=== PATIENT | male | born 1985 | race Caucasian/White ===

== ENCOUNTER 2019-01-11 20:50 | Emergency (ER) | payer BC ==
[2019-01-11] MEDS ORDERED: Sodium Chloride 0.9% 1,000 ML IV ONE (21:08)
--- NOTE | 2019-01-11 21:08 | EDM.PDOC ---
ED HPI GENERAL MEDICAL PROBLEM - General Chief Complaint: Flank Pain Stated Complaint: LT SIDE HURTS Time Seen by Provider: 01/11/19 20:57 - History of Present Illness INITIAL COMMENTS - FREE TEXT/NARRATIVE: HISTORY AND PHYSICAL: History of present illness: Patient 33-year-old white male was recently treated for urinary tract infection presents with a concern of left flank pain and difficulty urinating he's had no fever chills nausea vomiting or other complaints denies discomfort with urination or urethral discharge denies penile lesions Review of systems: As per history of present illness and below otherwise all systems reviewed and negative. Past medical history: As per history of present illness and as reviewed below otherwise noncontributory. Surgical history: As per history of present illness and as reviewed below otherwise noncontributory. Social history: No reported history of drug or alcohol abuse. Family history: As per history of present illness and as reviewed below otherwise noncontributory. Physical exam: HEENT: Atraumatic, normocephalic, pupils reactive, negative for conjunctival pallor or scleral icterus, mucous membranes moist, throat clear, neck supple, nontender, trachea midline. Lungs: Clear to auscultation, breath sounds equal bilaterally, chest nontender. Heart: S1S2, regular, negative for clicks, rubs, or JVD. Abdomen: Soft, nondistended, nontender. Negative for masses or hepatosplenomegaly. Negative for costovertebral tenderness. Pelvis: Stable nontender. Genitourinary: Deferred. Rectal: Deferred. Extremities: Atraumatic, negative for cords or calf pain. Neurovascular unremarkable. Neuro: Awake, alert, oriented. Cranial nerves II through XII unremarkable. Cerebellum unremarkable. Motor and sensory unremarkable throughout. Exam nonfocal. Diagnostics: CBC CMP UA BladderScan CT abdomen and pelvis Therapeutics: Saline 1 L bolus Impression: #1 left flank pain #2 history of urinary retention Definitive disposition and diagnosis as appropriate pending reevaluation and review of above. left flank Pain Score (Numeric/FACES): 3 - Related Data Allergies Allergy/AdvReac Type Severity Reaction Status Date / Time No Known Allergies Allergy Verified 01/11/19 20:58 Home Meds: Home Meds . [No Known Home Meds] 01/11/19 [History] Past Medical History - Past Health History Medical/Surgical History: Denies Medical/Surgical History Social & Family History - Family History Family Medical History: Noncontributory - Tobacco Use Smoking Status *Q: Never Smoker - Recreational Drug Use Recreational Drug Use: No ED ROS GENERAL - Review of Systems Review Of Systems: ROS reveals no pertinent complaints other than HPI. ED EXAM, GENERAL - Physical Exam Exam: See Below (Dictation) Course - Vital Signs Text/Narrative:: Multiple times a Mosqueda catheter placement was unsuccessful repeat bladder scan demonstrates 650 mL of urine urology is unavailable currently I discussed with patient transferred to [facility] for definitive evaluation and treatment Last Recorded V/S: Last Vital Signs Temp 35.9 C 01/11/19 20:50 Pulse 92 01/11/19 20:50 Resp 18 01/11/19 20:50 BP 141/84 H 01/11/19 20:50 Pulse Ox 95 01/11/19 20:50 - Orders/Labs/Meds Orders: Active Orders 24 hr Category Date Time Status Bladder Scan [RC] ASDIRECTED Care 01/11/19 20:59 Active Insert Mosqueda Catheter [Insert Urinary Catheter] [OM.PC] Care 01/11/19 22:00 Ordered Q24H Urinary Catheter Assessment [RC] ASDIRECTED Care 01/11/19 21:55 Active Labs: Laboratory Tests 01/11/19 01/11/19 01/11/19 Range/Units 21:05 21:20 21:20 WBC 6.22 (4.0-11.0) K/uL RBC 5.12 (4.50-5.90) M/uL Hgb 15.5 (13.0-17.0) g/dL Hct 44.5 (38.0-50.0) % MCV 86.9 (80.0-98.0) fL MCH 30.3 (27.0-32.0) pg MCHC 34.8 (31.0-37.0) g/dL RDW Std Deviation 42.7 (28.0-62.0) fl RDW Coeff of Maryann 13 (11.0-15.0) % Plt Count 193 (150-400) K/uL MPV 9.60 (7.40-12.00) fL Neut % (Auto) 69.2 (48.0-80.0) % Lymph % (Auto) 18.2 (16.0-40.0) % [place] % (Auto) 12.1 (0.0-15.0) % Eos % (Auto) 0.3 (0.0-7.0) % Baso % (Auto) 0.2 (0.0-1.5) % Neut # (Auto) 4.3 (1.4-5.7) K/uL Lymph # (Auto) 1.1 (0.6-2.4) K/uL [place] # (Auto) 0.8 (0.0-0.8) K/uL Eos # (Auto) 0.0 (0.0-0.7) K/uL Baso # (Auto) 0.0 (0.0-0.1) K/uL Nucleated RBC % 0.0 /100WBC Nucleated RBCs # 0 K/uL Sodium 137 (136-148) mmol/L Potassium 4.9 (3.5-5.1) mmol/L Chloride 103 (98-107) mmol/L Carbon Dioxide 21.9 (21.0-32.0) mmol/L BUN 15 (7.0-18.0) mg/dL Creatinine 1.2 (0.8-1.3) mg/dL Est Cr Clr Drug Dosing 85.50 mL/min Estimated GFR (MDRD) > 60.0 ml/min Glucose 111 H (74-106) mg/dL Calcium 8.8 (8.5-10.1) mg/dL Total Bilirubin 0.8 (0.2-1.0) mg/dL AST 55 H (15-37) IU/L ALT 56 (14-63) IU/L Alkaline Phosphatase 77 (46-116) U/L Total Protein 7.9 (6.4-8.2) g/dL Albumin 3.6 (3.4-5.0) g/dL Globulin 4.3 H (2.6-4.0) g/dL Albumin/Globulin Ratio 0.8 L (0.9-1.6) Urine Color YELLOW Urine Appearance CLEAR Urine pH 6.0 (5.0-8.0) Ur Specific [place] 1.010 (1.001-1.035) Urine Protein NEGATIVE (NEGATIVE) mg/dL Urine Glucose (UA) NEGATIVE (NEGATIVE) mg/dL Urine Ketones NEGATIVE (NEGATIVE) mg/dL Urine Occult Blood SMALL H (NEGATIVE) Urine Nitrite NEGATIVE (NEGATIVE) Urine Bilirubin NEGATIVE (NEGATIVE) Urine Urobilinogen 0.2 (<2.0) EU/dL Ur Leukocyte Esterase NEGATIVE (NEGATIVE) Urine RBC 1-2 (0-2/HPF) Urine WBC 0-1 (0-5/HPF) Ur Epithelial Cells RARE (NONE-FEW) Urine Bacteria RARE (NEGATIVE) Meds: Medications Discontinued Medications Generic Name Dose Route Start Last Admin Trade Name Freq PRN Reason Stop Dose Admin Sodium Chloride 1,000 mls @ 999 mls/hr 01/11/19 21:08 01/11/19 21:26 Normal Saline IV 01/11/19 22:08 999 mls/hr .Bolus ONE Administration Departure - Departure Time of Disposition: 22:32 Disposition: DC/Tfer to Acute Hospital 02 Condition: Good Clinical Impression: Acute urinary retention - Discharge Information Referrals: PCP,None [Primary Care Provider] - Forms: ED Department Discharge - My Orders Last 24 Hours: My Active Orders 01/11/19 20:59 Bladder Scan [RC] ASDIRECTED 01/11/19 21:55 Urinary Catheter Assessment [RC] ASDIRECTED 01/11/19 22:00 Insert Mosqueda Catheter [Insert Urinary Catheter] [OM.PC] Q24H - Assessment/Plan Last 24 Hours: My Active Orders 01/11/19 20:59 Bladder Scan [RC] ASDIRECTED 01/11/19 21:55 Urinary Catheter Assessment [RC] ASDIRECTED 01/11/19 22:00 Insert Mosqueda Catheter [Insert Urinary Catheter] [OM.PC] Q24H
[2019-01-11 21:52] LABS: BLOOD UREA NITROGEN,BUN 15 mg/dL (7.0-18.0); CARBON DIOXIDE,CO2 21.9 mmol/L (21.0-32.0); CHLORIDE,CL 103 mmol/L (98-107); GLUCOSE RANDOM 111 mg/dL (74-106); POTASSIUM,K 4.9 mmol/L (3.5-5.1); SODIUM,NA 137 mmol/L (136-148)
--- NOTE | 2019-01-11 22:08 | CT ---
INDICATION: Left flank pain, painful urination x 1.[address] ABDOMEN AND PELVIS WITHOUT CONTRAST TECHNIQUE: Multidetector CT imaging was performed through the abdomen and pelvis without intravenous contrast administration. Coronal and sagittal reconstructions were generated. COMPARISON: None. FINDINGS: Lower chest: Lung bases are clear. Liver: Diffuse fatty infiltration. Gallbladder and bile ducts: No gallbladder wall thickening or calcified gallstones. No biliary dilation identified. Pancreas: Unremarkable. Spleen: Normal. Adrenals: No nodules or masses. Kidneys, ureters, and urinary bladder: No urinary tract stones identified. No hydronephrosis. Question of mild diffuse wall thickening of the urinary bladder. Gastrointestinal tract: Normal caliber bowel without wall thickening. The appendix is normal. Vascular structures: Normal for age. Peritoneum: No free air, abscess, or significant free fluid. Lymph nodes: No pathologically enlarged nodes identified. Reproductive organs: No pelvic masses. Bones: Normal for age. IMPRESSION: 1. With question of mild wall thickening of the urinary bladder. Correlation with urinalysis is recommended to exclude cystitis. 2. Fatty infiltration of the liver. ADAN BREAUX MD [employer] [facility] [employer] Dictated by Torsten Breaux MD @ 01/11/2019 10:06:56 PM Dictated by: Torsten Breaux MD @ 01/11/2019 22:07:27 (Electronically Signed)
== END 2019-01-11 23:30 ==
LOC: MW.ED 20:50
DX: R33.9 Retention of urine, unspecified (principal); R10.9 Unspecified abdominal pain
CPT/HCPCS: 36415; 51798; 74176; 80053; 81001; 85025; 96360; 99285; J7040; 99284

== ENCOUNTER 2019-01-13 21:08 | Inpatient (IN) | payer BC ==
[2019-01-13] MEDS ORDERED: Sodium Chloride 0.9% 1,000 ML IV ONE ×2 (21:20→22:46)
[2019-01-13] MEDS ORDERED: Ibuprofen 800 MG Tab PO ONE (21:31)
--- NOTE | 2019-01-13 21:31 | EDM.PDOC ---
ED HPI GENERAL MEDICAL PROBLEM - General Chief Complaint: Fever Stated Complaint: HIGH FEVER AND CHILLS Time Seen by Provider: 01/13/19 21:29 Source of Information: Reports: Patient History Limitations: Reports: No Limitations - History of Present Illness INITIAL COMMENTS - FREE TEXT/NARRATIVE: HISTORY AND PHYSICAL: History of present illness: Patient is a 33-year-old male who presents to the emergency room today with complaints of fever and chills. Patient was seen in our emergency room on for urinary retention. During that visit they were unable to get a Post catheter after multiple attempts and was transferred to [facility] in [place]. The patient states he received a suprapubic catheter as they were unable to get a Post catheter in either. He was seen by a urologist at [facility]. Patient and were dissatisfied with finding the cause of his urinary retention and did go directly to [facility] in [place]. They had further lab workup and CT of the abdomen and pelvis which they state were benign with the exception of inflammation of the bladder. He was placed on Pyridium and Bactrim. Started these medications yesterday. He states he has felt well and has had no complaints up until 2 hours prior to arrival. 2 hours prior he developed fever of 103.9 and chills. They contacted [facility] in [place] and they recommend he come in for evaluation if fever continued. The patient took Tylenol prior to arrival. Patient denies any headache, change in vision, syncope or near syncope. Denies any chest pain, back pain, shortness of breath or cough. Denies any abdominal pain, nausea, vomiting, diarrhea, constipation or dysuria. Denies any testicular/rectal pain, swelling or erythema. Continues to make urine routinely in the post. No leaking or decrease in urinary output. Urine is orange/pink in color (but likely due to Pyridium - and has been this color since suprapubic catheter placement). Patient has been eating and drinking appropriately. Review of systems: As per history of present illness and below otherwise all systems reviewed and negative. Past medical history: As per history of present illness and as reviewed below otherwise noncontributory. Surgical history: As per history of present illness and as reviewed below otherwise noncontributory. Social history: See social history for further information Family history: As per history of present illness and as reviewed below otherwise noncontributory. Physical exam: General: Well-developed and well-nourished 33-year-old male. Alert and oriented. Nontoxic appearing and in no acute distress. HEENT: Atraumatic, normocephalic, pupils equal and reactive bilaterally, negative for conjunctival pallor or scleral icterus, mucous membranes moist, TMs normal bilaterally, throat clear, neck supple, nontender, trachea midline. No drooling or trismus noted. No meningeal signs. No hot potato voice noted. Lungs: Clear to auscultation, breath sounds equal bilaterally, chest nontender. Heart: S1S2, regular rate and rhythm without overt murmur Abdomen: Soft, nondistended, obese, nontender. Negative for masses or hepatosplenomegaly. Negative for costovertebral tenderness. Pelvis: Suprapubic catheter noted. See skin for details. Stable nontender. Genitourinary: WNL Skin: Suprapubic catheter is noted without any erythema. The surrounding skin is nonfluctuant/indurated and without any drainage or tenderness. Intact, warm, dry. No lesions or rashes noted. Extremities: Atraumatic, moves all extremities per self without difficulty or deficits. Neurovascular unremarkable. Neuro: Awake, alert, oriented. Cranial nerves II through XII unremarkable. Cerebellum unremarkable. Motor and sensory unremarkable throughout. Exam nonfocal. Notes: Currently patient's lactate is elevated, he is tachycardic but is not hypotensive. Patient continues to be pain free and states other than the chills he has no other complaints or concerns. Dr Pettit, urologist was consulted on this case. He states that this patient can be admitted to general medical and he will see the patient in the morning. Dr. Goodwin was consulted on this case. We 'll admit for observation and continue to monitor his blood pressure. R/o urosepsis Diagnostics: CBC, CMP, BC x 2, Lactic Acid, UA Therapeutics: Zosyn Impression: UTI Presence of suprapubic catheter Plan: Admission to Med/Surg Definitive disposition and diagnosis as appropriate pending reevaluation and review of above. site of suprapubic catheter Pain Score (Numeric/FACES): 5 - Related Data Allergies Allergy/AdvReac Type Severity Reaction Status Date / Time No Known Allergies Allergy Verified 01/13/19 21:21 Home Meds: Home Meds Phenazopyridine [Pyridium] 200 mg PO TID 01/13/19 [History] Sulfamethoxazole/Trimethoprim [Bactrim Ds Tablet] 1 tab PO BID 01/13/19 [History ] Past Medical History - Past Health History Medical/Surgical History: Denies Medical/Surgical History Genitourinary History: Reports: Other (See Below) Other Genitourinary History: with suprapubic catheter on, pt was here with complaints of inability to urinate and ED staff was unsuccessful in inserting indwelling cath ([place]rapubic cath [place] 01/12) - Infectious Disease History Infectious Disease History: Reports: Chicken Pox - Past Surgical History Male Surgical History: Reports: None Social & Family History - Family History Family Medical History: Noncontributory - Tobacco Use Smoking Status *Q: Never Smoker Second Hand Smoke Exposure: No - Caffeine Use Caffeine Use: Reports: Coffee - Recreational Drug Use Recreational Drug Use: No ED ROS GENERAL - Review of Systems Review Of Systems: ROS reveals no pertinent complaints other than HPI. ED EXAM, GENERAL - Physical Exam Exam: See Below (See dictation) Course - Vital Signs Last Recorded V/S: Last Vital Signs Temp 102.2 F H 01/13/19 22:32 Pulse 116 H 01/13/19 22:32 Resp 22 H 01/13/19 22:32 BP 126/59 L 01/13/19 22:32 Pulse Ox 95 01/13/19 22:32 - Orders/Labs/Meds Orders: Active Orders 24 hr Category Date Time Status Patient Status [ADT] Stat ADT 01/13/19 22:47 Ordered CULTURE BLOOD [BC] Stat Lab 01/13/19 21:21 Received CULTURE BLOOD [BC] Stat Lab 01/13/19 21:55 Received CULTURE URINE [RM] Stat Lab 01/13/19 21:50 Received Piperacillin/Tazobactam [Piperacil-Tazobact] 4.5 gm Med 01/13/19 22:46 Ordered Sodium Chloride 0.9% [Normal Saline] 100 ml IV ONETIME Sodium Chloride 0.9% [Normal Saline] 1,000 ml Med 01/13/19 22:46 Ordered IV STAT Blood Culture x2 Reflex Set [OM.PC] Stat Oth 01/13/19 21:19 Ordered Medication Orders Piperacillin Sod/Tazobactam (Sod 4.5 gm/ Sodium Chloride) 100 mls @ 100 mls/hr IV ONETIME ONE Stop: 01/13/19 23:45 Sodium Chloride (Normal Saline) 1,000 mls @ 999 mls/hr IV STAT ONE Stop: 01/13/19 23:46 Labs: Laboratory Tests 01/13/19 01/13/19 01/13/19 Range/Units 21:50 21:55 21:55 WBC 4.69 (4.0-11.0) K/uL RBC 4.86 (4.50-5.90) M/uL Hgb 14.5 (13.0-17.0) g/dL Hct 43.4 (38.0-50.0) % MCV 89.3 (80.0-98.0) fL MCH 29.8 (27.0-32.0) pg MCHC 33.4 (31.0-37.0) g/dL RDW Std Deviation 43.9 (28.0-62.0) fl RDW Coeff of Maryann 13 (11.0-15.0) % Plt Count 148 L (150-400) K/uL MPV 9.40 (7.40-12.00) fL Neut % (Auto) 91.0 H (48.0-80.0) % Lymph % (Auto) 6.8 L (16.0-40.0) % [place] % (Auto) 1.1 (0.0-15.0) % Eos % (Auto) 1.1 (0.0-7.0) % Baso % (Auto) 0.0 (0.0-1.5) % Neut # (Auto) 4.3 (1.4-5.7) K/uL Lymph # (Auto) 0.3 L (0.6-2.4) K/uL [place] # (Auto) 0.1 (0.0-0.8) K/uL Eos # (Auto) 0.1 (0.0-0.7) K/uL Baso # (Auto) 0.0 (0.0-0.1) K/uL Nucleated RBC % 0.0 /100WBC Nucleated RBCs # 0 K/uL Lactate 2.5 H (0.20-2.00) mmol/L Sodium (136-148) mmol/L Potassium (3.5-5.1) mmol/L Chloride (98-107) mmol/L Carbon Dioxide (21.0-32.0) mmol/L BUN (7.0-18.0) mg/dL Creatinine (0.8-1.3) mg/dL Est Cr Clr Drug Dosing mL/min Estimated GFR (MDRD) ml/min Glucose (74-106) mg/dL Calcium (8.5-10.1) mg/dL Total Bilirubin (0.2-1.0) mg/dL AST (15-37) IU/L ALT (14-63) IU/L Alkaline Phosphatase (46-116) U/L Total Protein (6.4-8.2) g/dL Albumin (3.4-5.0) g/dL Globulin (2.6-4.0) g/dL Albumin/Globulin Ratio (0.9-1.6) Urine Color ORANGE Urine Appearance CLOUDY Urine pH 6.5 (5.0-8.0) Ur Specific [place] 1.025 (1.001-1.035) Urine Protein >=300 H (NEGATIVE) mg/dL Urine Glucose (UA) >=1000 (NEGATIVE) mg/dL Urine Ketones 15 H (NEGATIVE) mg/dL Urine Occult Blood LARGE H (NEGATIVE) Urine Nitrite POSITIVE H (NEGATIVE) Urine Bilirubin NEGATIVE (NEGATIVE) Urine Urobilinogen >=8.0 H (<2.0) EU/dL Ur Leukocyte Esterase SMALL H (NEGATIVE) Urine RBC 50-60 (0-2/HPF) Urine WBC 2-3 (0-5/HPF) Ur Epithelial Cells RARE (NONE-FEW) Urine Bacteria 2+ H (NEGATIVE) 01/13/19 Range/Units 21:55 WBC (4.0-11.0) K/uL RBC (4.50-5.90) M/uL Hgb (13.0-17.0) g/dL Hct (38.0-50.0) % MCV (80.0-98.0) fL MCH (27.0-32.0) pg MCHC (31.0-37.0) g/dL RDW Std Deviation (28.0-62.0) fl RDW Coeff of Maryann (11.0-15.0) % Plt Count (150-400) K/uL MPV (7.40-12.00) fL Neut % (Auto) (48.0-80.0) % Lymph % (Auto) (16.0-40.0) % [place] % (Auto) (0.0-15.0) % Eos % (Auto) (0.0-7.0) % Baso % (Auto) (0.0-1.5) % Neut # (Auto) (1.4-5.7) K/uL Lymph # (Auto) (0.6-2.4) K/uL [place] # (Auto) (0.0-0.8) K/uL Eos # (Auto) (0.0-0.7) K/uL Baso # (Auto) (0.0-0.1) K/uL Nucleated RBC % /100WBC Nucleated RBCs # K/uL Lactate (0.20-2.00) mmol/L Sodium 139 (136-148) mmol/L Potassium 3.7 (3.5-5.1) mmol/L Chloride 104 (98-107) mmol/L Carbon Dioxide 24.0 (21.0-32.0) mmol/L BUN 15 (7.0-18.0) mg/dL Creatinine 1.4 H (0.8-1.3) mg/dL Est Cr Clr Drug Dosing 75.75 mL/min Estimated GFR (MDRD) 58.7 ml/min Glucose 131 H (74-106) mg/dL Calcium 8.2 L (8.5-10.1) mg/dL Total Bilirubin 0.7 (0.2-1.0) mg/dL AST 35 (15-37) IU/L ALT 45 (14-63) IU/L Alkaline Phosphatase 70 (46-116) U/L Total Protein 6.8 (6.4-8.2) g/dL Albumin 3.3 L (3.4-5.0) g/dL Globulin 3.5 (2.6-4.0) g/dL Albumin/Globulin Ratio 0.9 (0.9-1.6) Urine Color Urine Appearance Urine pH (5.0-8.0) Ur Specific [place] (1.001-1.035) Urine Protein (NEGATIVE) mg/dL Urine Glucose (UA) (NEGATIVE) mg/dL Urine Ketones (NEGATIVE) mg/dL Urine Occult Blood (NEGATIVE) Urine Nitrite (NEGATIVE) Urine Bilirubin (NEGATIVE) Urine Urobilinogen (<2.0) EU/dL Ur Leukocyte Esterase (NEGATIVE) Urine RBC (0-2/HPF) Urine WBC (0-5/HPF) Ur Epithelial Cells (NONE-FEW) Urine Bacteria (NEGATIVE) Meds: Medications Generic Name Dose Route Start Last Admin Trade Name Freq PRN Reason Stop Dose Admin Piperacillin Sod/Tazobactam 100 mls @ 100 mls/hr 01/13/19 22:46 Sod 4.5 gm/ Sodium Chloride IV 01/13/19 23:45 ONETIME ONE Sodium Chloride 1,000 mls @ 999 mls/hr 01/13/19 22:46 Normal Saline IV 01/13/19 23:46 STAT ONE Discontinued Medications Generic Name Dose Route Start Last Admin Trade Name Freq PRN Reason Stop Dose Admin Sodium Chloride 1,000 mls @ 999 mls/hr 01/13/19 21:20 01/13/19 21:35 Normal Saline IV 01/13/19 22:20 999 mls/hr STAT ONE Administration Ibuprofen 800 mg 01/13/19 21:31 01/13/19 21:44 Motrin PO 01/13/19 21:32 800 mg ONETIME ONE Administration Departure - Departure Time of Disposition: 22:54 Disposition: Refer to Observation Clinical Impression: Presence of suprapubic catheter UTI (urinary tract infection) Qualifiers: Urinary tract infection type: site unspecified Hematuria presence: with hematuria Qualified Code(s): N39.0 - Urinary tract infection, site not specified ; R31.9 - Hematuria, unspecified - Discharge Information Referrals: PCP,None [Primary Care Provider] - Forms: ED Department Discharge - My Orders Last 24 Hours: My Active Orders 01/13/19 21:19 Blood Culture x2 Reflex Set [OM.PC] Stat 01/13/19 21:21 CULTURE BLOOD [BC] Stat 01/13/19 21:50 CULTURE URINE [RM] Stat 01/13/19 21:55 CULTURE BLOOD [BC] Stat 01/13/19 22:46 Piperacillin/Tazobactam [Piperacil-Tazobact] 4.5 gm Sodium Chloride 0.9% [ Normal Saline] 100 ml IV ONETIME Sodium Chloride 0.9% [Normal Saline] 1,000 ml IV STAT 01/13/19 22:47 Patient Status [ADT] Stat - Assessment/Plan Last 24 Hours: My Active Orders 01/13/19 21:19 Blood Culture x2 Reflex Set [OM.PC] Stat 01/13/19 21:21 CULTURE BLOOD [BC] Stat 01/13/19 21:50 CULTURE URINE [RM] Stat 01/13/19 21:55 CULTURE BLOOD [BC] Stat 01/13/19 22:46 Piperacillin/Tazobactam [Piperacil-Tazobact] 4.5 gm Sodium Chloride 0.9% [ Normal Saline] 100 ml IV ONETIME Sodium Chloride 0.9% [Normal Saline] 1,000 ml IV STAT 01/13/19 22:47 Patient Status [ADT] Stat
[2019-01-13 22:36] LABS: POTASSIUM,K 3.7 mmol/L (3.5-5.1)
[2019-01-13] MEDS ORDERED: Piperacillin/Tazobactam 4.5 GM in Sodium Chloride 0.9% 100 ML IV ONE (22:46)
--- NOTE | 2019-01-14 00:49 | PCM.HP.2 ---
H&P History of Present Illness - General Date of Service: 01/14/19 Admit Problem/Dx: Admission Diagnosis/Problem Admission Diagnosis/Problem UTI, Urinary tract infectious disease - History of Present Illness Initial Comments - Free Text/Narative: 33 yo male with pmh of UTI for which he was initially treated with Bactrim then developed urinary retention and was transferred to [place] where he had a suprapubic catheter placed. They attempted cystocopy but were unable to pass scope. He then went to [place] for another opinion regarding the reason for his obstruction but was told he need to wait to allow the inflammation of the bladder to improve before attempting any further studies. He has been at home doing well until today he developed fevers and chills. He denies any suprapubic pain or discharge/erythema around catheter site. site of suprapubic catheter Pain Score (Numeric/FACES): 5 - Related Data Allergies/Adverse Reactions: Allergies Allergy/AdvReac Type Severity Reaction Status Date / Time No Known Allergies Allergy Verified 01/14/19 02:07 Home Medications: Home Meds Phenazopyridine [Pyridium] 200 mg PO TID 01/13/19 [History] Sulfamethoxazole/Trimethoprim [Bactrim Ds Tablet] 1 tab PO BID 01/13/19 [History ] Past Medical History - Past Health History Medical/Surgical History: Denies Medical/Surgical History Genitourinary History: Reports: Other (See Below) Other Genitourinary History: with suprapubic catheter on, pt was here with complaints of inability to urinate and ED staff was unsuccessful in inserting ind[facility]elling cath [facility] - Infectious Disease History Infectious Disease History: Reports: Chicken Pox - Past Surgical History Male Surgical History: Reports: None Social & Family History - Family History Family Medical History: Noncontributory - Tobacco Use Smoking Status *Q: Never Smoker Second Hand Smoke Exposure: No - Caffeine Use Caffeine Use: Reports: Coffee, Soda - Recreational Drug Use Recreational Drug Use: No H&P Review of Systems - Review of Systems: Review Of Systems: ROS reveals no pertinent complaints other than HPI. Exam - Exam Exam: See Below - Vital Signs Vital Signs: Last Vital Signs Temp 37.6 C 01/14/19 00:00 Pulse 105 H 01/14/19 00:00 Resp 18 01/14/19 00:00 BP 107/51 L 01/14/19 00:00 Pulse Ox 94 L 01/14/19 00:00 Weight: 136.713 kg - Exam General: Alert, Oriented HEENT: Mucosa Moist & [place] Lungs: Clear to Auscultation, Normal Respiratory Effort Cardiovascular: Regular Rate, Regular Rhythm GI/Abdominal Exam: Soft, Non-Tender Extremities: Non-Tender, No Pedal Edema Skin: Warm, Dry, Intact - Patient Data Lab Results Last 24 hrs: Laboratory Results - last 24 hr 01/13/19 01/13/19 01/13/19 Range/Units 21:50 21:55 21:55 WBC 4.69 (4.0-11.0) K/uL RBC 4.86 (4.50-5.90) M/uL Hgb 14.5 (13.0-17.0) g/dL Hct 43.4 (38.0-50.0) % MCV 89.3 (80.0-98.0) fL MCH 29.8 (27.0-32.0) pg MCHC 33.4 (31.0-37.0) g/dL RDW Std Deviation 43.9 (28.0-62.0) fl RDW Coeff of Maryann 13 (11.0-15.0) % Plt Count 148 L (150-400) K/uL MPV 9.40 (7.40-12.00) fL Neut % (Auto) 91.0 H (48.0-80.0) % Lymph % (Auto) 6.8 L (16.0-40.0) % [place] % (Auto) 1.1 (0.0-15.0) % Eos % (Auto) 1.1 (0.0-7.0) % Baso % (Auto) 0.0 (0.0-1.5) % Neut # (Auto) 4.3 (1.4-5.7) K/uL Lymph # (Auto) 0.3 L (0.6-2.4) K/uL [place] # (Auto) 0.1 (0.0-0.8) K/uL Eos # (Auto) 0.1 (0.0-0.7) K/uL Baso # (Auto) 0.0 (0.0-0.1) K/uL Nucleated RBC % 0.0 /100WBC Nucleated RBCs # 0 K/uL Lactate 2.5 H (0.20-2.00) mmol/L Sodium (136-148) mmol/L Potassium (3.5-5.1) mmol/L Chloride (98-107) mmol/L Carbon Dioxide (21.0-32.0) mmol/L BUN (7.0-18.0) mg/dL Creatinine (0.8-1.3) mg/dL Est Cr Clr Drug Dosing mL/min Estimated GFR (MDRD) ml/min Glucose (74-106) mg/dL Calcium (8.5-10.1) mg/dL Total Bilirubin (0.2-1.0) mg/dL AST (15-37) IU/L ALT (14-63) IU/L Alkaline Phosphatase (46-116) U/L Total Protein (6.4-8.2) g/dL Albumin (3.4-5.0) g/dL Globulin (2.6-4.0) g/dL Albumin/Globulin Ratio (0.9-1.6) Urine Color ORANGE Urine Appearance CLOUDY Urine pH 6.5 (5.0-8.0) Ur Specific [place] 1.025 (1.001-1.035) Urine Protein >=300 H (NEGATIVE) mg/dL Urine Glucose (UA) >=1000 (NEGATIVE) mg/dL Urine Ketones 15 H (NEGATIVE) mg/dL Urine Occult Blood LARGE H (NEGATIVE) Urine Nitrite POSITIVE H (NEGATIVE) Urine Bilirubin NEGATIVE (NEGATIVE) Urine Urobilinogen >=8.0 H (<2.0) EU/dL Ur Leukocyte Esterase SMALL H (NEGATIVE) Urine RBC 50-60 (0-2/HPF) Urine WBC 2-3 (0-5/HPF) Ur Epithelial Cells RARE (NONE-FEW) Urine Bacteria 2+ H (NEGATIVE) 01/13/19 Range/Units 21:55 WBC (4.0-11.0) K/uL RBC (4.50-5.90) M/uL Hgb (13.0-17.0) g/dL Hct (38.0-50.0) % MCV (80.0-98.0) fL MCH (27.0-32.0) pg MCHC (31.0-37.0) g/dL RDW Std Deviation (28.0-62.0) fl RDW Coeff of Maryann (11.0-15.0) % Plt Count (150-400) K/uL MPV (7.40-12.00) fL Neut % (Auto) (48.0-80.0) % Lymph % (Auto) (16.0-40.0) % [place] % (Auto) (0.0-15.0) % Eos % (Auto) (0.0-7.0) % Baso % (Auto) (0.0-1.5) % Neut # (Auto) (1.4-5.7) K/uL Lymph # (Auto) (0.6-2.4) K/uL [place] # (Auto) (0.0-0.8) K/uL Eos # (Auto) (0.0-0.7) K/uL Baso # (Auto) (0.0-0.1) K/uL Nucleated RBC % /100WBC Nucleated RBCs # K/uL Lactate (0.20-2.00) mmol/L Sodium 139 (136-148) mmol/L Potassium 3.7 (3.5-5.1) mmol/L Chloride 104 (98-107) mmol/L Carbon Dioxide 24.0 (21.0-32.0) mmol/L BUN 15 (7.0-18.0) mg/dL Creatinine 1.4 H (0.8-1.3) mg/dL Est Cr Clr Drug Dosing 75.75 mL/min Estimated GFR (MDRD) 58.7 ml/min Glucose 131 H (74-106) mg/dL Calcium 8.2 L (8.5-10.1) mg/dL Total Bilirubin 0.7 (0.2-1.0) mg/dL AST 35 (15-37) IU/L ALT 45 (14-63) IU/L Alkaline Phosphatase 70 (46-116) U/L Total Protein 6.8 (6.4-8.2) g/dL Albumin 3.3 L (3.4-5.0) g/dL Globulin 3.5 (2.6-4.0) g/dL Albumin/Globulin Ratio 0.9 (0.9-1.6) Urine Color Urine Appearance Urine pH (5.0-8.0) Ur Specific [place] (1.001-1.035) Urine Protein (NEGATIVE) mg/dL Urine Glucose (UA) (NEGATIVE) mg/dL Urine Ketones (NEGATIVE) mg/dL Urine Occult Blood (NEGATIVE) Urine Nitrite (NEGATIVE) Urine Bilirubin (NEGATIVE) Urine Urobilinogen (<2.0) EU/dL Ur Leukocyte Esterase (NEGATIVE) Urine RBC (0-2/HPF) Urine WBC (0-5/HPF) Ur Epithelial Cells (NONE-FEW) Urine Bacteria (NEGATIVE) Result Diagrams: 01/15/19 05:12 01/15/19 05:12 Problem List Initiated/Reviewed/Updated: Yes Orders Last 24hrs: Active Orders 24 hr Category Date Time Status Patient Status [ADT] Routine ADT 01/14/19 00:41 Ordered Antiembolic Devices [RC] PER UNIT ROUTINE Care 01/14/19 00:42 Ordered Oxygen Therapy [RC] PRN Care 01/14/19 00:41 Ordered Up ad Tanja [RC] ASDIRECTED Care 01/14/19 00:41 Ordered VTE/DVT Education [RC] PER UNIT ROUTINE Care 01/14/19 00:41 Ordered Vital Signs [RC] Q4H Care 01/14/19 00:41 Ordered Regular Diet [DIET] Diet 01/14/19 Breakfast Ordered BASIC METABOLIC PANEL,BMP [CHEM] AM Lab 01/14/19 05:11 Ordered BASIC METABOLIC PANEL,BMP [CHEM] AM Lab 01/15/19 05:11 Ordered CBC W/O DIFF,HEMOGRAM [HEME] AM Lab 01/14/19 05:11 Ordered CBC W/O DIFF,HEMOGRAM [HEME] AM Lab 01/15/19 05:11 Ordered CULTURE BLOOD [BC] Stat Lab 01/13/19 21:21 Received CULTURE BLOOD [BC] Stat Lab 01/13/19 21:55 Received CULTURE URINE [RM] Stat Lab 01/13/19 21:50 Received LACTIC ACID,WHOLE BLOOD [BG] Q6H Lab 01/14/19 03:00 Ordered LACTIC ACID,WHOLE BLOOD [BG] Q6H Lab 01/14/19 09:00 Ordered LACTIC ACID,WHOLE BLOOD [BG] Q6H Lab 01/14/19 15:00 Ordered LACTIC ACID,WHOLE BLOOD [BG] Q6H Lab 01/14/19 21:00 Ordered Acetaminophen [Tylenol] Med 01/14/19 00:41 Ordered 650 mg PO Q4H PRN Phenazopyridine [Pyridium] Med 01/14/19 06:00 Ordered 200 mg PO TID Piperacillin/Tazobactam [Piperacil-Tazobact] 3.375 gm Med 01/14/19 04:00 Ordered Sodium Chloride 0.9% [Normal Saline] 50 ml IV Q6H Blood Culture x2 Reflex Set [OM.PC] Stat Oth 01/13/19 21:19 Ordered Obtain Past Medical Record [OM.PC] Routine Oth 01/14/19 00:43 Ordered Sequential Compression Device [OM.PC] Per Unit Routine Oth 01/14/19 00:42 Ordered Resuscitation Status Routine Resus Stat 01/14/19 00:41 Ordered Medication Orders Acetaminophen (Tylenol) 650 mg PO Q4H PRN PRN Reason: Pain (Mild 1-3)/fever Piperacillin Sod/Tazobactam (Sod 3.375 gm/ Sodium Chloride) 50 mls @ 100 mls/ hr IV Q6H [facility] Phenazopyridine HCl (Pyridium) 200 mg PO TID [facility] Assessment/Plan Comment:: 33 yo male admitted for sepsis from UTI. We will treat with IV fluids, Zosyn and trend lactic acid. Urine and blood cultures are pending. Dr. Pettit was consulted in the ED.
[2019-01-14] MEDS: Sodium Chloride 0.9% 1,000 ML IV SCH ×4 (01:16→22:11)
[2019-01-14] MEDS: Piperacillin/Tazobactam 3.375 GM in Sodium Chloride 0.9% 50 ML IV SCH ×4 (04:47→22:12)
[2019-01-14] MEDS: Phenazopyridine 200 MG Tab PO SCH ×3 (04:59→22:12)
[2019-01-14 06:49] LABS: CARBON DIOXIDE,CO2 23.6 mmol/L (21.0-32.0); POTASSIUM,K 3.4 mmol/L (3.5-5.1)
[2019-01-14] MEDS ORDERED: Potassium Chloride 20 MEQ Tab.ER PO ONE (09:24)
--- NOTE | 2019-01-14 10:55 | PCM.PN ---
- General Info Date of Service: 01/14/19 - Review of Systems Systems Review Comment:: feeling better, no fevers - Patient Data Vitals - Most Recent: Last Vital Signs Temp 37.4 C 01/14/19 07:36 Pulse 97 01/14/19 07:36 Resp 18 01/14/19 07:36 BP 120/58 L 01/14/19 07:36 Pulse Ox 94 L 01/14/19 07:36 Weight - Most Recent: 136.713 kg I&O - Last 24 Hours: Intake & Output 01/13/19 01/14/19 01/14/19 22:59 06:59 14:59 Intake Total 300 Output Total 450 Balance -150 Lab Results Last 24 Hours: Laboratory Results - last 24 hr 01/13/19 01/13/19 01/13/19 Range/Units 21:50 21:55 21:55 WBC 4.69 (4.0-11.0) K/uL RBC 4.86 (4.50-5.90) M/uL Hgb 14.5 (13.0-17.0) g/dL Hct 43.4 (38.0-50.0) % MCV 89.3 (80.0-98.0) fL MCH 29.8 (27.0-32.0) pg MCHC 33.4 (31.0-37.0) g/dL RDW Std Deviation 43.9 (28.0-62.0) fl RDW Coeff of Maryann 13 (11.0-15.0) % Plt Count 148 L (150-400) K/uL MPV 9.40 (7.40-12.00) fL Neut % (Auto) 91.0 H (48.0-80.0) % Lymph % (Auto) 6.8 L (16.0-40.0) % [place] % (Auto) 1.1 (0.0-15.0) % Eos % (Auto) 1.1 (0.0-7.0) % Baso % (Auto) 0.0 (0.0-1.5) % Neut # (Auto) 4.3 (1.4-5.7) K/uL Lymph # (Auto) 0.3 L (0.6-2.4) K/uL [place] # (Auto) 0.1 (0.0-0.8) K/uL Eos # (Auto) 0.1 (0.0-0.7) K/uL Baso # (Auto) 0.0 (0.0-0.1) K/uL Nucleated RBC % 0.0 /100WBC Nucleated RBCs # 0 K/uL Lactate 2.5 H (0.20-2.00) mmol/L Sodium (136-148) mmol/L Potassium (3.5-5.1) mmol/L Chloride (98-107) mmol/L Carbon Dioxide (21.0-32.0) mmol/L BUN (7.0-18.0) mg/dL Creatinine (0.8-1.3) mg/dL Est Cr Clr Drug Dosing mL/min Estimated GFR (MDRD) ml/min Glucose (74-106) mg/dL Calcium (8.5-10.1) mg/dL Total Bilirubin (0.2-1.0) mg/dL AST (15-37) IU/L ALT (14-63) IU/L Alkaline Phosphatase (46-116) U/L Total Protein (6.4-8.2) g/dL Albumin (3.4-5.0) g/dL Globulin (2.6-4.0) g/dL Albumin/Globulin Ratio (0.9-1.6) Urine Color ORANGE Urine Appearance CLOUDY Urine pH 6.5 (5.0-8.0) Ur Specific [place] 1.025 (1.001-1.035) Urine Protein >=300 H (NEGATIVE) mg/dL Urine Glucose (UA) >=1000 (NEGATIVE) mg/dL Urine Ketones 15 H (NEGATIVE) mg/dL Urine Occult Blood LARGE H (NEGATIVE) Urine Nitrite POSITIVE H (NEGATIVE) Urine Bilirubin NEGATIVE (NEGATIVE) Urine Urobilinogen >=8.0 H (<2.0) EU/dL Ur Leukocyte Esterase SMALL H (NEGATIVE) Urine RBC 50-60 (0-2/HPF) Urine WBC 2-3 (0-5/HPF) Ur Epithelial Cells RARE (NONE-FEW) Urine Bacteria 2+ H (NEGATIVE) 01/13/19 01/14/19 01/14/19 Range/Units 21:55 03:06 06:06 WBC 6.88 (4.0-11.0) K/uL RBC 4.40 L (4.50-5.90) M/uL Hgb 12.9 L (13.0-17.0) g/dL Hct 39.2 (38.0-50.0) % MCV 89.1 (80.0-98.0) fL MCH 29.3 (27.0-32.0) pg MCHC 32.9 (31.0-37.0) g/dL RDW Std Deviation 44.4 (28.0-62.0) fl RDW Coeff of Maryann 14 (11.0-15.0) % Plt Count 132 L (150-400) K/uL MPV 9.30 (7.40-12.00) fL Neut % (Auto) (48.0-80.0) % Lymph % (Auto) (16.0-40.0) % [place] % (Auto) (0.0-15.0) % Eos % (Auto) (0.0-7.0) % Baso % (Auto) (0.0-1.5) % Neut # (Auto) (1.4-5.7) K/uL Lymph # (Auto) (0.6-2.4) K/uL [place] # (Auto) (0.0-0.8) K/uL Eos # (Auto) (0.0-0.7) K/uL Baso # (Auto) (0.0-0.1) K/uL Nucleated RBC % 0.0 /100WBC Nucleated RBCs # 0 K/uL Lactate 1.2 (0.20-2.00) mmol/L Sodium 139 (136-148) mmol/L Potassium 3.7 (3.5-5.1) mmol/L Chloride 104 (98-107) mmol/L Carbon Dioxide 24.0 (21.0-32.0) mmol/L BUN 15 (7.0-18.0) mg/dL Creatinine 1.4 H (0.8-1.3) mg/dL Est Cr Clr Drug Dosing 75.75 mL/min Estimated GFR (MDRD) 58.7 ml/min Glucose 131 H (74-106) mg/dL Calcium 8.2 L (8.5-10.1) mg/dL Total Bilirubin 0.7 (0.2-1.0) mg/dL AST 35 (15-37) IU/L ALT 45 (14-63) IU/L Alkaline Phosphatase 70 (46-116) U/L Total Protein 6.8 (6.4-8.2) g/dL Albumin 3.3 L (3.4-5.0) g/dL Globulin 3.5 (2.6-4.0) g/dL Albumin/Globulin Ratio 0.9 (0.9-1.6) Urine Color Urine Appearance Urine pH (5.0-8.0) Ur Specific [place] (1.001-1.035) Urine Protein (NEGATIVE) mg/dL Urine Glucose (UA) (NEGATIVE) mg/dL Urine Ketones (NEGATIVE) mg/dL Urine Occult Blood (NEGATIVE) Urine Nitrite (NEGATIVE) Urine Bilirubin (NEGATIVE) Urine Urobilinogen (<2.0) EU/dL Ur Leukocyte Esterase (NEGATIVE) Urine RBC (0-2/HPF) Urine WBC (0-5/HPF) Ur Epithelial Cells (NONE-FEW) Urine Bacteria (NEGATIVE) 01/14/19 Range/Units 06:06 WBC (4.0-11.0) K/uL RBC (4.50-5.90) M/uL Hgb (13.0-17.0) g/dL Hct (38.0-50.0) % MCV (80.0-98.0) fL MCH (27.0-32.0) pg MCHC (31.0-37.0) g/dL RDW Std Deviation (28.0-62.0) fl RDW Coeff of Amryann (11.0-15.0) % Plt Count (150-400) K/uL MPV (7.40-12.00) fL Neut % (Auto) (48.0-80.0) % Lymph % (Auto) (16.0-40.0) % [place] % (Auto) (0.0-15.0) % Eos % (Auto) (0.0-7.0) % Baso % (Auto) (0.0-1.5) % Neut # (Auto) (1.4-5.7) K/uL Lymph # (Auto) (0.6-2.4) K/uL [place] # (Auto) (0.0-0.8) K/uL Eos # (Auto) (0.0-0.7) K/uL Baso # (Auto) (0.0-0.1) K/uL Nucleated RBC % /100WBC Nucleated RBCs # K/uL Lactate (0.20-2.00) mmol/L Sodium 139 (136-148) mmol/L Potassium 3.4 L (3.5-5.1) mmol/L Chloride 106 (98-107) mmol/L Carbon Dioxide 23.6 (21.0-32.0) mmol/L BUN 16 (7.0-18.0) mg/dL Creatinine 1.4 H (0.8-1.3) mg/dL Est Cr Clr Drug Dosing 75.75 mL/min Estimated GFR (MDRD) 58.7 ml/min Glucose 126 H (74-106) mg/dL Calcium 7.4 L (8.5-10.1) mg/dL Total Bilirubin (0.2-1.0) mg/dL AST (15-37) IU/L ALT (14-63) IU/L Alkaline Phosphatase (46-116) U/L Total Protein (6.4-8.2) g/dL Albumin (3.4-5.0) g/dL Globulin (2.6-4.0) g/dL Albumin/Globulin Ratio (0.9-1.6) Urine Color Urine Appearance Urine pH (5.0-8.0) Ur Specific [place] (1.001-1.035) Urine Protein (NEGATIVE) mg/dL Urine Glucose (UA) (NEGATIVE) mg/dL Urine Ketones (NEGATIVE) mg/dL Urine Occult Blood (NEGATIVE) Urine Nitrite (NEGATIVE) Urine Bilirubin (NEGATIVE) Urine Urobilinogen (<2.0) EU/dL Ur Leukocyte Esterase (NEGATIVE) Urine RBC (0-2/HPF) Urine WBC (0-5/HPF) Ur Epithelial Cells (NONE-FEW) Urine Bacteria (NEGATIVE) Med Orders - Current: Current Medications Acetaminophen (Tylenol) 650 mg PO Q4H PRN PRN Reason: Pain (Mild 1-3)/fever Piperacillin Sod/Tazobactam (Sod 3.375 gm/ Sodium Chloride) 50 mls @ 100 mls/ hr IV Q6H [facility] Last Admin: 01/14/19 09:56 Dose: 100 mls/hr Sodium Chloride (Normal Saline) 1,000 mls @ 150 mls/hr IV ASDIRECTED [facility] Last Admin: 01/14/19 08:34 Dose: 150 mls/hr Phenazopyridine HCl (Pyridium) 200 mg PO TID [facility] Last Admin: 01/14/19 04:59 Dose: 200 mg Discontinued Medications Sodium Chloride (Normal Saline) 1,000 mls @ 999 mls/hr IV STAT ONE Stop: 01/13/19 22:20 Last Admin: 01/13/19 21:35 Dose: 999 mls/hr Piperacillin Sod/Tazobactam (Sod 4.5 gm/ Sodium Chloride) 100 mls @ 100 mls/hr IV ONETIME ONE Stop: 01/13/19 23:45 Last Admin: 01/13/19 22:55 Dose: 100 mls/hr Sodium Chloride (Normal Saline) 1,000 mls @ 999 mls/hr IV STAT ONE Stop: 01/13/19 23:46 Last Admin: 01/13/19 22:54 Dose: 999 mls/hr Ibuprofen (Motrin) 800 mg PO ONETIME ONE Stop: 01/13/19 21:32 Last Admin: 01/13/19 21:44 Dose: 800 mg Potassium Chloride (Klor-Con M20) 40 meq PO ONETIME ONE Stop: 01/14/19 09:25 Last Admin: 01/14/19 09:56 Dose: 40 meq - Exam General: Alert, Oriented HEENT: Mucous Membr. Moist/[place] Neck: Supple Lungs: Clear to Auscultation, Normal Respiratory Effort GI/Abdominal Exam: Soft, Non-Tender, Other (suprapubic catheter in place, no erythema) Skin: Warm, Dry, Intact Neurological: No New Focal Deficit - Problem List Review Problem List Initiated/Reviewed/Updated: Yes - My Orders Last 24 Hours: My Active Orders 01/14/19 00:41 Patient Status [ADT] Routine Oxygen Therapy [RC] PRN Up ad Tanja [RC] ASDIRECTED VTE/DVT Education [RC] PER UNIT ROUTINE Vital Signs [RC] Q4H Acetaminophen [Tylenol] 650 mg PO Q4H PRN Resuscitation Status Routine 01/14/19 00:42 Antiembolic Devices [RC] PER UNIT ROUTINE Sequential Compression Device [OM.PC] Per Unit Routine 01/14/19 00:43 Obtain Past Medical Record [OM.PC] Routine 01/14/19 01:00 Sodium Chloride 0.9% [Normal Saline] 1,000 ml IV ASDIRECTED 01/14/19 04:00 Piperacillin/Tazobactam [Piperacil-Tazobact] 3.375 gm Sodium Chloride 0.9% [ Normal Saline] 50 ml IV Q6H 01/14/19 06:00 Phenazopyridine [Pyridium] 200 mg PO TID 01/14/19 Breakfast Regular Diet [DIET] 01/15/19 05:11 BASIC METABOLIC PANEL,BMP [CHEM] AM CBC W/O DIFF,HEMOGRAM [HEME] AM - Plan Plan:: 33 yo male admitted for sepsis from UTI. Sepsis resolving, We will continue Zosyn and await cultures. Dr. Pettit has been consulted.
[2019-01-14] MEDS: Heparin Sodium 5,000 Units/ML Vial SUBCUT SCH ×2 (12:47→20:27)
[2019-01-14] MEDS: Acetaminophen 325 MG Tab PO PRN ×2 (15:36→20:25)
--- NOTE | 2019-01-14 18:52 | CONS ---
DATE OF CONSULTATION: DATE OF : 1985 PRIMARY CARE PHYSICIAN: None PCP HISTORY OF PRESENT ILLNESS: A 33-year-old. He was seen through the emergency room twice over the last 3 days. Initially presented on Friday with inability to urinate. Attempts at catheterization failed. I was out of town. He was sent out to [place]. Additional attempts at catheterization there failed, so he ended up with a suprapubic tube placement. This whole thing probably started 2 weeks prior to this, when he presented to his local care facility with irritative urinary symptoms, was given Bactrim, and was sent out. Bactrim seemed to improve the symptoms. Presently UA and urine culture were done. I do not have that information. However, when the Bactrim stopped and he was back from [place] to work to [place], his symptoms started again and he was unable to void. At any rate, he at presentation yesterday had sinus tachycardia. His temperature was recorded as 99.6. His blood pressure was 107/51. His pulse at one point was as high as 120. He was admitted for treatment of sepsis. He was started on IV Zosyn. Overnight, he has improved and stabilized. His blood pressure is better at 120/58, pulse is 97. History is significant for having had slow urinary stream as far as he could remember. No history of any procedures. No previous history of urinary tract infections prior to this episode 2 weeks ago. PHYSICAL EXAMINATION: GENERAL: He is alert. He is oriented. ABDOMEN: Soft. SP tube is in place in the immediate suprapubic area. The urine is clear. PLAN: Another day of IV antibiotics. Attempts should be made to locate the urine culture and sensitivity, so we can send him on the proper oral antibiotic at home. We should wait 2 to 3 weeks, bring him back and do a cystoscopy under anesthesia to find the proper urethral channel, possibly catheter enlarged it, put a catheter in and take his SP tube out and go from there. That was all explained to him. MASSIEL FAYE /[id number]
[2019-01-15] MEDS: Piperacillin/Tazobactam 3.375 GM in Sodium Chloride 0.9% 50 ML IV SCH ×4 (04:00→21:37)
[2019-01-15] MEDS: Heparin Sodium 5,000 Units/ML Vial SUBCUT SCH ×3 (04:01→20:51)
[2019-01-15] MEDS: Sodium Chloride 0.9% 1,000 ML IV SCH ×3 (04:01→20:41)
[2019-01-15 05:35] LABS: BLOOD UREA NITROGEN,BUN 10 mg/dL (7.0-18.0); CARBON DIOXIDE,CO2 23.4 mmol/L (21.0-32.0); CHLORIDE,CL 104 mmol/L (98-107); GLUCOSE RANDOM 118 mg/dL (74-106); POTASSIUM,K 3.5 mmol/L (3.5-5.1); SODIUM,NA 138 mmol/L (136-148)
[2019-01-15] MEDS: Phenazopyridine 200 MG Tab PO SCH ×3 (06:16→21:34)
--- NOTE | 2019-01-15 09:17 | PCM.PN ---
- General Info Date of Service: 01/15/19 - Review of Systems Systems Review Comment:: had fever last night, reports nausea this morning - Patient Data Vitals - Most Recent: Last Vital Signs Temp 37.3 C 01/15/19 04:00 Pulse 105 H 01/15/19 04:00 Resp 20 01/15/19 04:00 BP 140/67 01/15/19 04:00 Pulse Ox 94 L 01/15/19 04:00 Weight - Most Recent: 136.713 kg I&O - Last 24 Hours: Intake & Output 01/14/19 01/15/19 01/15/19 22:59 06:59 14:59 Intake Total 3603 3276 Output Total 2550 3050 Balance 1053 226 Lab Results Last 24 Hours: Laboratory Results - last 24 hr 01/15/19 01/15/19 Range/Units 05:12 05:12 WBC 4.83 (4.0-11.0) K/uL RBC 4.37 L (4.50-5.90) M/uL Hgb 12.9 L (13.0-17.0) g/dL Hct 37.9 L (38.0-50.0) % MCV 86.7 (80.0-98.0) fL MCH 29.5 (27.0-32.0) pg MCHC 34.0 (31.0-37.0) g/dL RDW Std Deviation 42.3 (28.0-62.0) fl RDW Coeff of Maryann 13 (11.0-15.0) % Plt Count 110 L (150-400) K/uL MPV 9.40 (7.40-12.00) fL Nucleated RBC % 0.0 /100WBC Nucleated RBCs # 0 K/uL Sodium 138 (136-148) mmol/L Potassium 3.5 (3.5-5.1) mmol/L Chloride 104 (98-107) mmol/L Carbon Dioxide 23.4 (21.0-32.0) mmol/L BUN 10 (7.0-18.0) mg/dL Creatinine 1.3 (0.8-1.3) mg/dL Est Cr Clr Drug Dosing 81.58 mL/min Estimated GFR (MDRD) > 60.0 ml/min Glucose 118 H (74-106) mg/dL Calcium 7.6 L (8.5-10.1) mg/dL Meng Results Last 24 Hours: Microbiology 01/13/19 21:50 Urine Culture - Final Urine, Clean Catch MIXED ARACELI 1,000-10,000 CFU/ML 01/13/19 21:55 Aerobic Blood Culture - Preliminary Blood - Venous - Lab Draw NO GROWTH AFTER 1 DAY Anaerobic Blood Culture - Preliminary NO GROWTH AFTER 1 DAY 01/13/19 21:21 Aerobic Blood Culture - Preliminary Blood - Venous NO GROWTH AFTER 1 DAY Anaerobic Blood Culture - Preliminary NO GROWTH AFTER 1 DAY Med Orders - Current: Current Medications Acetaminophen (Tylenol) 650 mg PO Q4H PRN PRN Reason: Pain (Mild 1-3)/fever Last Admin: 01/14/19 20:25 Dose: 650 mg Heparin Sodium (Porcine) (Heparin Sodium) 5,000 units SUBCUT Q8H [facility] Last Admin: 01/15/19 04:01 Dose: Not Given Piperacillin Sod/Tazobactam (Sod 3.375 gm/ Sodium Chloride) 50 mls @ 100 mls/ hr IV Q6H [facility] Last Admin: 01/15/19 04:00 Dose: 100 mls/hr Sodium Chloride (Normal Saline) 1,000 mls @ 150 mls/hr IV ASDIRECTED [facility] Last Admin: 01/15/19 04:01 Dose: 150 mls/hr Phenazopyridine HCl (Pyridium) 200 mg PO TID [facility] Last Admin: 01/15/19 06:16 Dose: 200 mg Discontinued Medications Sodium Chloride (Normal Saline) 1,000 mls @ 999 mls/hr IV STAT ONE Stop: 01/13/19 22:20 Last Admin: 01/13/19 21:35 Dose: 999 mls/hr Piperacillin Sod/Tazobactam (Sod 4.5 gm/ Sodium Chloride) 100 mls @ 100 mls/hr IV ONETIME ONE Stop: 01/13/19 23:45 Last Admin: 01/13/19 22:55 Dose: 100 mls/hr Sodium Chloride (Normal Saline) 1,000 mls @ 999 mls/hr IV STAT ONE Stop: 01/13/19 23:46 Last Admin: 01/13/19 22:54 Dose: 999 mls/hr Ibuprofen (Motrin) 800 mg PO ONETIME ONE Stop: 01/13/19 21:32 Last Admin: 01/13/19 21:44 Dose: 800 mg Potassium Chloride (Klor-Con M20) 40 meq PO ONETIME ONE Stop: 01/14/19 09:25 Last Admin: 01/14/19 09:56 Dose: 40 meq - Exam General: Alert, Oriented Lungs: Clear to Auscultation, Normal Respiratory Effort Cardiovascular: Regular Rate, Regular Rhythm GI/Abdominal Exam: Soft, Non-Tender Extremities: Non-Tender, No Pedal Edema Skin: Warm, Dry, Intact - Problem List Review Problem List Initiated/Reviewed/Updated: Yes - My Orders Last 24 Hours: My Active Orders 01/14/19 12:00 Heparin Sodium 5,000 units SUBCUT Q8H 01/16/19 05:11 BASIC METABOLIC PANEL,BMP [CHEM] AM CBC WITH AUTO DIFF [HEME] AM - Plan Plan:: 33 yo male admitted for sepsis from UTI. We will continue Zosyn. Patient still having fever at night but afebrile this morning. Will keep overnight again for further IV antibiotics.
[2019-01-16] MEDS: Sodium Chloride 0.9% 1,000 ML IV SCH (04:02)
[2019-01-16] MEDS: Heparin Sodium 5,000 Units/ML Vial SUBCUT SCH ×2 (04:03→12:45)
[2019-01-16] MEDS: Piperacillin/Tazobactam 3.375 GM in Sodium Chloride 0.9% 50 ML IV SCH ×2 (04:08→09:37)
[2019-01-16] MEDS: Phenazopyridine 200 MG Tab PO SCH (05:59)
[2019-01-16 07:01] LABS: BLOOD UREA NITROGEN,BUN 11 mg/dL (7.0-18.0); CARBON DIOXIDE,CO2 26.4 mmol/L (21.0-32.0); CHLORIDE,CL 107 mmol/L (98-107); GLUCOSE RANDOM 96 mg/dL (74-106); POTASSIUM,K 4.1 mmol/L (3.5-5.1); SODIUM,NA 142 mmol/L (136-148)
--- NOTE | 2019-01-16 08:33 | PCM.PN ---
- Patient Data Vitals - Most Recent: Last Vital Signs Temp 36.1 C 01/16/19 07:38 Pulse 77 01/16/19 07:38 Resp 16 01/16/19 07:38 BP 121/87 01/16/19 07:38 Pulse Ox 96 01/16/19 07:38 Weight - Most Recent: 136.713 kg I&O - Last 24 Hours: Intake & Output 01/15/19 01/16/19 01/16/19 22:59 06:59 14:59 Intake Total 1957 3021 Output Total 0141 7214 Balance -296 -1293 Lab Results Last 24 Hours: Laboratory Results - last 24 hr 01/16/19 01/16/19 Range/Units 05:55 05:55 WBC 3.77 L (4.0-11.0) K/uL RBC 4.31 L (4.50-5.90) M/uL Hgb 12.6 L (13.0-17.0) g/dL Hct 37.7 L (38.0-50.0) % MCV 87.5 (80.0-98.0) fL MCH 29.2 (27.0-32.0) pg MCHC 33.4 (31.0-37.0) g/dL RDW Std Deviation 43.0 (28.0-62.0) fl RDW Coeff of Maryann 14 (11.0-15.0) % Plt Count 115 L (150-400) K/uL MPV 10.00 (7.40-12.00) fL Neut % (Auto) 39.5 L (48.0-80.0) % Lymph % (Auto) 43.2 H (16.0-40.0) % [place] % (Auto) 10.9 (0.0-15.0) % Eos % (Auto) 6.1 (0.0-7.0) % Baso % (Auto) 0.3 (0.0-1.5) % Neut # (Auto) 1.5 (1.4-5.7) K/uL Lymph # (Auto) 1.6 (0.6-2.4) K/uL [place] # (Auto) 0.4 (0.0-0.8) K/uL Eos # (Auto) 0.2 (0.0-0.7) K/uL Baso # (Auto) 0.0 (0.0-0.1) K/uL Nucleated RBC % 0.0 /100WBC Nucleated RBCs # 0 K/uL Sodium 142 (136-148) mmol/L Potassium 4.1 (3.5-5.1) mmol/L Chloride 107 (98-107) mmol/L Carbon Dioxide 26.4 (21.0-32.0) mmol/L BUN 11 (7.0-18.0) mg/dL Creatinine 1.0 (0.8-1.3) mg/dL Est Cr Clr Drug Dosing 106.05 mL/min Estimated GFR (MDRD) > 60.0 ml/min Glucose 96 (74-106) mg/dL Calcium 8.2 L (8.5-10.1) mg/dL Meng Results Last 24 Hours: Microbiology 01/13/19 21:55 Aerobic Blood Culture - Preliminary Blood - Venous - Lab Draw NO GROWTH AFTER 2 DAYS Anaerobic Blood Culture - Preliminary NO GROWTH AFTER 2 DAYS 01/13/19 21:21 Aerobic Blood Culture - Preliminary Blood - Venous NO GROWTH AFTER 2 DAYS Anaerobic Blood Culture - Preliminary NO GROWTH AFTER 2 DAYS 01/13/19 21:50 Urine Culture - Final Urine, Clean Catch MIXED ARACELI 1,000-10,000 CFU/ML Med Orders - Current: Current Medications Acetaminophen (Tylenol) 650 mg PO Q4H PRN PRN Reason: Pain (Mild 1-3)/fever Last Admin: 01/14/19 20:25 Dose: 650 mg Heparin Sodium (Porcine) (Heparin Sodium) 5,000 units SUBCUT Q8H [facility] Last Admin: 01/16/19 04:03 Dose: 5,000 units Piperacillin Sod/Tazobactam (Sod 3.375 gm/ Sodium Chloride) 50 mls @ 100 mls/ hr IV Q6H [facility] Last Admin: 01/16/19 04:08 Dose: 100 mls/hr Sodium Chloride (Normal Saline) 1,000 mls @ 150 mls/hr IV ASDIRECTED [facility] Last Admin: 01/16/19 04:02 Dose: 150 mls/hr Phenazopyridine HCl (Pyridium) 200 mg PO TID [facility] Last Admin: 01/16/19 05:59 Dose: 200 mg Discontinued Medications Sodium Chloride (Normal Saline) 1,000 mls @ 999 mls/hr IV STAT ONE Stop: 01/13/19 22:20 Last Admin: 01/13/19 21:35 Dose: 999 mls/hr Piperacillin Sod/Tazobactam (Sod 4.5 gm/ Sodium Chloride) 100 mls @ 100 mls/hr IV ONETIME ONE Stop: 01/13/19 23:45 Last Admin: 01/13/19 22:55 Dose: 100 mls/hr Sodium Chloride (Normal Saline) 1,000 mls @ 999 mls/hr IV STAT ONE Stop: 01/13/19 23:46 Last Admin: 01/13/19 22:54 Dose: 999 mls/hr Ibuprofen (Motrin) 800 mg PO ONETIME ONE Stop: 01/13/19 21:32 Last Admin: 01/13/19 21:44 Dose: 800 mg Potassium Chloride (Klor-Con M20) 40 meq PO ONETIME ONE Stop: 01/14/19 09:25 Last Admin: 01/14/19 09:56 Dose: 40 meq - My Orders Last 24 Hours: My Active Orders 01/16/19 08:25 GLYCOSYLATED HEMOGLOBIN,HGBA1C [CHEM] Routine - Plan Plan:: 33 yo male admitted for sepsis from UTI. We will continue Zosyn. Patient still having fever at night but afebrile this morning. Will keep overnight again for further IV antibiotics.
[2019-01-16 09:11] LABS: HEMOGLOBIN A1C 5.6 % (4.5-6.2)
--- NOTE | 2019-01-16 12:10 | PCM.DCSUM1 ---
Discharge Summary - Hospital Course HPI Initial Comments: Admitted secondary to complicated urinary tract infection with suprapubic catheter. The catheter was placed in tertiary care center secondary to inability to pass cystoscopy. Diagnosis: Stroke: No - Discharge Data Discharge Date: 01/16/19 Discharge Disposition: Home, Self-Care 01 Condition: Good - Referral to Home Health Primary Care Physician: PCP None - Discharge Diagnosis/Problem(s) (1) Presence of suprapubic catheter SNOMED Code(s): 875354780, 403516876 ICD Code: Z93.59 - OTHER CYSTOSTOMY STATUS Status: Acute Priority: High (2) UTI (urinary tract infection) SNOMED Code(s): 96647106 ICD Code: N39.0 - URINARY TRACT INFECTION, SITE NOT SPECIFIED Status: Acute Priority: High Qualifiers: Urinary tract infection type: site unspecified Hematuria presence: with hematuria Qualified Code(s): N39.0 - Urinary tract infection, site not specified; R31.9 - Hematuria, unspecified (3) Acute urinary retention SNOMED Code(s): 267172723 ICD Code: R33.8 - OTHER RETENTION OF URINE Status: Acute Priority: High - Patient Summary/Data Consults: Consultations 01/14/19 09:23 Consult to Physician [CONS] Routine Hospital Course: The patient is a 33-year-old gentleman who presented to the emergency department out of concern for urinary tract infection. The patient had been treated with Bactrim and was transferred to [facility] and subsequently had a suprapubic catheter placed. The catheter was place secondary to inability to complete cystoscopy. Patient's urine cultures showed mixed juan of 1000-10,000 colonies forming units. The patient initially had been placed on Pyridium and Zosyn. Patient had tolerated both these well. The patient continued to improve over the short course of hospitalization. It was noted by day of discharge the patient has exhibited a mild pancytopenia and the origins of this are uncertain. This should be investigated as an outpatient. Because of the complicated urinary tract infection the patient was discharged on ciprofloxacin 500 mg by mouth twice a day and was given #60. The patient has a follow-up appointment later this week with his urologist. The patient has been hemodynamically stable. He is also recommended to continue with his catheter care for his suprapubic catheter. He is to have his regular diet as tolerated. The patient is also have activity as tolerated. He has necessary equipment for his suprapubic catheter. The patient is stable and he'll be discharged from acute hospitalization with the recommendations listed above. - Patient Instructions Diet: Usual Diet as Tolerated Activity: As Tolerated Notify Provider of: Fever, Increased Pain - Discharge Plan *PRESCRIPTION DRUG MONITORING PROGRAM REVIEWED*: No *COPY OF PRESCRIPTION DRUG MONITORING REPORT IN PATIENT LUIS: No Prescriptions/Med Rec: Ciprofloxacin HCl [Cipro] 500 mg PO BID #60 tablet Phenazopyridine [Pyridium] 200 mg PO TID PRN #15 tablet PRN Reason: Pain Home Medications: Home Meds Ciprofloxacin HCl [Cipro] 500 mg PO BID #60 tablet 01/16/19 [Rx] Phenazopyridine [Pyridium] 200 mg PO TID PRN #15 tablet 01/16/19 [Rx] Oxygen Therapy Mode: Room Air Patient Handouts: Phenazopyridine tablets, Urinary Tract Infection, Adult, Ciprofloxacin tablets, Suprapubic Catheter Replacement, Care After, Suprapubic Catheter Home Guide Referrals: Ginette Pettit MD [Physician] - 02/03/19 1:00 pm - Discharge Summary/Plan Comment DC Time >30 min.: Yes - General Info Date of Service: 01/16/19 Admission Dx/Problem (Free Text: Admission Diagnosis/Problem Admission Diagnosis/Problem UTI, Urinary tract infectious disease Subjective Update: the patient is doing much better today. He feels like he can go home. Functional Status: Reports: Pain Controlled - Review of Systems General: Reports: No Symptoms HEENT: Reports: No Symptoms Pulmonary: Reports: No Symptoms Cardiovascular: Reports: No Symptoms Gastrointestinal: Reports: No Symptoms Genitourinary: Reports: Other (Suprapubic catheter) Musculoskeletal: Reports: No Symptoms Skin: Reports: No Symptoms Neurological: Reports: No Symptoms Psychiatric: Reports: No Symptoms - Patient Data Vitals - Most Recent: Last Vital Signs Temp 36.1 C 01/16/19 07:38 Pulse 77 01/16/19 07:38 Resp 16 01/16/19 07:38 BP 121/87 01/16/19 07:38 Pulse Ox 96 01/16/19 07:38 Weight - Most Recent: 136.713 kg I&O - Last 24 hours: Intake & Output 01/15/19 01/16/19 01/16/19 22:59 06:59 14:59 Intake Total 1492 3026 Output Total 5606 3037 Balance -331 -3503 Lab Results - Last 24 hrs: Laboratory Results - last 24 hr 01/16/19 01/16/19 01/16/19 Range/Units 05:55 05:55 07:08 WBC 3.77 L (4.0-11.0) K/uL RBC 4.31 L (4.50-5.90) M/uL Hgb 12.6 L (13.0-17.0) g/dL Hct 37.7 L (38.0-50.0) % MCV 87.5 (80.0-98.0) fL MCH 29.2 (27.0-32.0) pg MCHC 33.4 (31.0-37.0) g/dL RDW Std Deviation 43.0 (28.0-62.0) fl RDW Coeff of Maryann 14 (11.0-15.0) % Plt Count 115 L (150-400) K/uL MPV 10.00 (7.40-12.00) fL Neut % (Auto) 39.5 L (48.0-80.0) % Lymph % (Auto) 43.2 H (16.0-40.0) % [place] % (Auto) 10.9 (0.0-15.0) % Eos % (Auto) 6.1 (0.0-7.0) % Baso % (Auto) 0.3 (0.0-1.5) % Neut # (Auto) 1.5 (1.4-5.7) K/uL Lymph # (Auto) 1.6 (0.6-2.4) K/uL [place] # (Auto) 0.4 (0.0-0.8) K/uL Eos # (Auto) 0.2 (0.0-0.7) K/uL Baso # (Auto) 0.0 (0.0-0.1) K/uL Nucleated RBC % 0.0 /100WBC Nucleated RBCs # 0 K/uL Sodium 142 (136-148) mmol/L Potassium 4.1 (3.5-5.1) mmol/L Chloride 107 (98-107) mmol/L Carbon Dioxide 26.4 (21.0-32.0) mmol/L BUN 11 (7.0-18.0) mg/dL Creatinine 1.0 (0.8-1.3) mg/dL Est Cr Clr Drug Dosing 106.05 mL/min Estimated GFR (MDRD) > 60.0 ml/min Glucose 96 (74-106) mg/dL Hemoglobin A1c 5.6 (4.5-6.2) % Calcium 8.2 L (8.5-10.1) mg/dL RAMON Results - Last 24 hrs: Microbiology 01/13/19 21:55 Aerobic Blood Culture - Preliminary Blood - Venous - Lab Draw NO GROWTH AFTER 2 DAYS Anaerobic Blood Culture - Preliminary NO GROWTH AFTER 2 DAYS 01/13/19 21:21 Aerobic Blood Culture - Preliminary Blood - Venous NO GROWTH AFTER 2 DAYS Anaerobic Blood Culture - Preliminary NO GROWTH AFTER 2 DAYS 01/13/19 21:50 Urine Culture - Final Urine, Clean Catch MIXED JUAN 1,000-10,000 CFU/ML Med Orders - Current: Current Medications Acetaminophen (Tylenol) 650 mg PO Q4H PRN PRN Reason: Pain (Mild 1-3)/fever Last Admin: 01/14/19 20:25 Dose: 650 mg Heparin Sodium (Porcine) (Heparin Sodium) 5,000 units SUBCUT Q8H [facility] Last Admin: 01/16/19 04:03 Dose: 5,000 units Piperacillin Sod/Tazobactam (Sod 3.375 gm/ Sodium Chloride) 50 mls @ 100 mls/ hr IV Q6H [facility] Last Admin: 01/16/19 09:37 Dose: 100 mls/hr Sodium Chloride (Normal Saline) 1,000 mls @ 150 mls/hr IV ASDIRECTED [facility] Last Admin: 01/16/19 04:02 Dose: 150 mls/hr Phenazopyridine HCl (Pyridium) 200 mg PO TID [facility] Last Admin: 01/16/19 05:59 Dose: 200 mg Discontinued Medications Sodium Chloride (Normal Saline) 1,000 mls @ 999 mls/hr IV STAT ONE Stop: 01/13/19 22:20 Last Admin: 01/13/19 21:35 Dose: 999 mls/hr Piperacillin Sod/Tazobactam (Sod 4.5 gm/ Sodium Chloride) 100 mls @ 100 mls/hr IV ONETIME ONE Stop: 01/13/19 23:45 Last Admin: 01/13/19 22:55 Dose: 100 mls/hr Sodium Chloride (Normal Saline) 1,000 mls @ 999 mls/hr IV STAT ONE Stop: 01/13/19 23:46 Last Admin: 01/13/19 22:54 Dose: 999 mls/hr Ibuprofen (Motrin) 800 mg PO ONETIME ONE Stop: 01/13/19 21:32 Last Admin: 01/13/19 21:44 Dose: 800 mg Potassium Chloride (Klor-Con M20) 40 meq PO ONETIME ONE Stop: 01/14/19 09:25 Last Admin: 01/14/19 09:56 Dose: 40 meq - Exam Quality Assessment: Reports: Urine Catheter. Denies: Supplemental Oxygen General: Reports: Alert, Oriented, Cooperative, No Acute Distress HEENT: Reports: Pupils Equal, Pupils Reactive, EOMI, Mucous Membr. Moist/[place] Neck: Reports: Supple, Trachea Midline Lungs: Reports: Clear to Auscultation, Normal Respiratory Effort Cardiovascular: Reports: Regular Rate, Regular Rhythm GI/Abdominal Exam: Normal Bowel Sounds, Soft, Non-Tender, No Distention Back Exam: Reports: Normal Inspection, Full Range of Motion Extremities: Normal Inspection, No Pedal Edema Skin: Reports: Warm, Dry, Intact Neurological: Reports: No New Focal Deficit Psy/Mental Status: Reports: Alert, Normal Affect, Normal Mood
== END 2019-01-16 13:40 | disposition home or self-care (01) | DRG 466 ==
LOC: MW.ED 21:08 → MW.MS 22:47 → OBSVTOIN 01-14 00:41 → MW.MS 01-14 00:46
PROVIDERS: ADMIT Internal Medicine; ATTEND Internal Medicine
DX: T83.518A Infection and inflammatory reaction due to other urinary catheter, initial encounter (principal); A41.9 Sepsis, unspecified organism; N39.0 Urinary tract infection, site not specified; R31.9 Hematuria, unspecified; R33.8 Other retention of urine; D61.818 Other pancytopenia; Z93.59 Other cystostomy status; Z79.899 Other long term (current) drug therapy
CPT/HCPCS: 36415; 80048; 80053; 81001; 83036; 83605; 85025; 85027; 87040; 87086; 96361; 96365; 99283; 99284-25; A9270-GY; G0378; J1644; J2543; J7030; J7040; J7050

== ENCOUNTER 2019-02-11 06:32 | Day surgery (SDC) | payer BC ==
[~2019-02-11 06:32] MED LIST: Lactated Ringers 1,000 ML IV SCH; Sodium Chloride 0.9% 10 ML SDV IV PRN; Sodium Chloride 0.9% 10 ML Syringe FLUSH PRN; Sodium Chloride 0.9% 2.5 ML Syringe FLUSH PRN
[2019-02-11] MEDS ORDERED: Ondansetron 4 MG/2 ML SDV ONE (07:02)
[2019-02-11] MEDS ORDERED: Propofol 200 MG/20 ML SDV ONE (07:02)
[2019-02-11] MEDS ORDERED: Lidocaine 2% 5 ML SDV ONE (07:02)
[2019-02-11] MEDS ORDERED: Midazolam 1 MG/ML 2 ML SDV ONE (07:02)
[2019-02-11] MEDS ORDERED: fentaNYL 250 MCG/5 ML SDV ONE (07:03)
--- NOTE | 2019-02-11 07:09 | PCM.PREANE ---
Preanesthetic Assessment - Anesthesia/Transfusion/Family Hx Anesthesia History: Prior Anesthesia Without Reaction Family History of Anesthesia Reaction: No Transfusion History: No Prior Transfusion(s) Intubation History: Unknown - Review of Systems General: No Symptoms Pulmonary: No Symptoms Cardiovascular: No Symptoms Gastrointestinal: No Symptoms Neurological: No Symptoms Other: Reports: None - Physical Assessment Vital Signs: Last Vital Signs Temp 36.2 C 02/11/19 06:45 Pulse 75 02/11/19 06:45 Resp 16 02/11/19 06:45 BP 133/70 02/11/19 06:45 Pulse Ox 96 02/11/19 06:45 Height: 5 ft 9 in Weight: 129.727 kg ASA Class: 2 Mental Status: Alert & Oriented x3 Airway Class: Mallampati = 2 Dentition: Reports: Normal Dentition, Missing Tooth/Teeth (x2 upper (sides)) Thyro-Mental Finger Breadths: 3 Mouth Opening Finger Breadths: 3 ROM/Head Extension: Full Lungs: Clear to Auscultation, Normal Respiratory Effort Cardiovascular: Regular Rate, Regular Rhythm - Allergies Allergies/Adverse Reactions: Allergies Allergy/AdvReac Type Severity Reaction Status Date / Time No Known Allergies Allergy Verified 02/10/19 10:09 - Blood Blood Available: No - Anesthesia Plan Pre-Op Medication Ordered: None - Acknowledgements Anesthesia Type Planned: General Anesthesia Pt an Appropriate Candidate for the Planned Anesthesia: Yes Alternatives and Risks of Anesthesia Discussed w Pt/Guardian: Yes Pt/Guardian Understands and Agrees with Anesthesia Plan: Yes PreAnesthesia Questionnaire - Past Health History Medical/Surgical History: Denies Medical/Surgical History Genitourinary History: Reports: Other (See Below) Other Genitourinary History: urethral stricture with urinary retention needing suprapubic cath. (still present) 01/11/19, recent sepsis Musculoskeletal History: Reports: Fracture Other Musculoskeletal History: hx of bilateral fx feet Endocrine/Metabolic History: Reports: Obesity/BMI 30+ (BMI 42.2) - Infectious Disease History Infectious Disease History: Reports: Chicken Pox - Past Surgical History Head Surgeries/Procedures: Reports: None Other Female Surgeries/Procedures: insertion of Suprapubic catheter (local MAC) Male Surgical History: Reports: Other (See Below) - SUBSTANCE USE Smoking Status *Q: Never Smoker Recreational Drug Use History: No - HOME MEDS Home Medications: Home Meds Ciprofloxacin HCl [Cipro] 500 mg PO BID #60 tablet 01/16/19 [Rx] - CURRENT (IN HOUSE) MEDS Current Meds: Current Medications Lactated Ringer's (Ringers, Lactated) 1,000 mls @ 100 mls/hr IV ASDIRECTED [facility] Last Admin: 02/11/19 07:01 Dose: 100 mls/hr Sodium Chloride (Saline Flush) 10 ml FLUSH ASDIRECTED PRN PRN Reason: Keep Vein Open Sodium Chloride (Saline Flush) 2.5 ml FLUSH ASDIRECTED PRN PRN Reason: Keep Vein Open Sodium Chloride (Normal Saline) 10 ml IV ASDIRECTED PRN PRN Reason: IV Use Tobramycin (Pharmacy To Dose - Tobramycin) 0 dose .XX ONETIME ONE Stop: 02/11/19 00:02 Discontinued Medications Fentanyl (Sublimaze) Confirm Administered Dose 250 mcg .ROUTE .STK-MED ONE Stop: 02/11/19 07:04 Lidocaine (Xylocaine-Mpf 2%) Confirm Administered Dose 5 ml .ROUTE .STK-MED ONE Stop: 02/11/19 07:03 Midazolam HCl (Versed 1 Mg/Ml) Confirm Administered Dose 2 mg .ROUTE .STK-MED ONE Stop: 02/11/19 07:03 Ondansetron HCl (Zofran) Confirm Administered Dose 4 mg .ROUTE .STK-MED ONE Stop: 02/11/19 07:03 Propofol (Diprivan 20 Ml) Confirm Administered Dose 200 mg .ROUTE .STK-MED ONE Stop: 02/11/19 07:03
[2019-02-11] MEDS ORDERED: Glycopyrrolate 0.2 MG/ML SDV ONE ×2 (08:29→08:31)
[2019-02-11] MEDS ORDERED: ePHEDrine 50 MG/ML SDV ONE (08:29)
[2019-02-11] MEDS ORDERED: Atropine 0.1 MG/ML 10 ML Syringe IVPUSH PRN ×2 (08:47)
[2019-02-11] MEDS ORDERED: Naloxone 0.4 MG/ML Syringe IVPUSH PRN (08:47)
[2019-02-11] MEDS ORDERED: Albuterol 0.083% 2.5 MG/3 ML Neb Soln NEB PRN (08:47)
[2019-02-11] MEDS ORDERED: EPINEPHrine 1:10,000 1 MG/10 ML Syringe IVPUSH PRN (08:47)
[2019-02-11] MEDS ORDERED: fentaNYL 100 MCG/2 ML SDV IVPUSH PRN (08:47)
[2019-02-11] MEDS ORDERED: 50% Dextrose in Water 50 ML Syringe IVPUSH PRN (08:47)
--- NOTE | 2019-02-11 09:54 | PCM.POSTAN ---
POST ANESTHESIA ASSESSMENT - MENTAL STATUS Mental Status: Alert, Oriented - VITAL SIGNS Vital Signs: Last Vital Signs Temp 36.7 C 02/11/19 09:13 Pulse 87 02/11/19 09:48 Resp 16 02/11/19 09:48 BP 144/80 H 02/11/19 09:48 Pulse Ox 97 02/11/19 09:48 - RESPIRATORY Respiratory Status: Respiratory Rate WNL, Airway Patent, O2 Saturation Stable - CARDIOVASCULAR CV Status: Pulse Rate WNL, Blood Pressure Stable - GASTROINTESTINAL GI Status: No Symptoms - PAIN Pain Score: 0 - POST OP HYDRATION Hydration Status: Adequate & Stable - OBSERVATIONS Free Text/Narrative:: No anesthesia problems
[2019-02-11 10:17] LABS: BLOOD UREA NITROGEN,BUN 16 mg/dL (7.0-18.0); CARBON DIOXIDE,CO2 27.1 mmol/L (21.0-32.0); CHLORIDE,CL 104 mmol/L (98-107); GLUCOSE RANDOM 89 mg/dL (74-106); POTASSIUM,K 4.4 mmol/L (3.5-5.1); SODIUM,NA 140 mmol/L (136-148)
--- NOTE | 2019-02-11 10:20 | PCM48HPAN ---
Post Anesthesia Note - EVALUATION WITHIN 48HRS OF ANESTHETIC Vital Signs in Normal Range: Yes Patient Participated in Evaluation: Yes Respiratory Function Stable: Yes Airway Patent: Yes Cardiovascular Function Stable: Yes Hydration Status Stable: Yes Pain Control Satisfactory: Yes Nausea and Vomiting Control Satisfactory: Yes Mental Status Recovered: Yes Vital Signs: Last Vital Signs Temp 36.2 C 02/11/19 09:59 Pulse 85 02/11/19 09:59 Resp 16 02/11/19 09:59 BP 126/89 02/11/19 09:59 Pulse Ox 98 02/11/19 09:59 - COMMENTS/OBSERVATIONS Free Text/Narrative:: no anesthesia problems
--- NOTE | 2019-02-11 13:16 | OR ---
SURGEON: Ginette Pettit M.D. DATE OF PROCEDURE: 02/11/2019 PREOPERATIVE DIAGNOSIS: Urinary obstruction secondary to pinpoint tight urethral stricture. POSTOPERATIVE DIAGNOSIS: Urinary obstruction secondary to pinpoint tight urethral stricture. OPERATION: Urethroscopy, visual urethrotomy, Mosqu[place] catheter placement and removal of suprapubic tube. DESCRIPTION OF PROCEDURE: Patient was given general anesthesia. He was in dorsal lithotomy position, prepped and draped in sterile drapes. Urethroscopy was done showed a pinpoint bulbous urethral stricture. A guidewire was advanced through that. The visual urethrotome was then advanced in the urethra and the stricture was cut in 4 quadrants. The cuts were deep enough to cause it to bleed, so the Bugbee electrode was used to stop that bleeding. Guidewire was put back in over which an 18-[place] catheter was advanced into the bladder that was connected to straight drainage. The suprapubic tube was removed. The patient tolerated the procedure well and was moved to recovery room in good condition. MASSIEL / NEYDA /[id number]
== END 2019-02-11 11:39 | disposition home or self-care (01) ==
LOC: MW.SDS 06:32
PROVIDERS: ATTEND Urology
DX: N35.912 Unspecified bulbous urethral stricture, male (principal)
CPT/HCPCS: 36415; 52276; 80048; 83735; 93005; J2001; J2250; J2405; J2704; J3010; J3490; J7120; C1769